=== PATIENT | female | born 1985 | race Caucasian/White ===

== ENCOUNTER 2018-09-22 10:14 | Emergency (ER) | payer OTHER ==
[~2018-09-22] VITALS: Ht 172.7 cm; Wt 82.0 kg
--- NOTE | 2018-09-22 11:13 | NUR ---
PT CURRENTLY IN .
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
[2018-09-22 11:48] LABS: BASOPHILS % (AUTO) 1 % (0-1); EOSINOPHILS # (AUTO) 0.09 x10^3/uL (0-0.4); EOSINOPHILS % (AUTO) 1 % (1-7); LYMPHOCYTES # (AUTO) 1.49 x10^3/uL (1-3.4); LYMPHOCYTES % (AUTO) 16 % (22-44); MD NO; MEAN CORPUSCULAR HEMOGLOBIN 28.7 pg (27.0-34.8); MEAN CORPUSCULAR HGB CONC 32.3 g/dL (32.4-35.8); MEAN CORPUSCULAR VOLUME 88.9 fL (80-100); MEAN PLATELET VOLUME 9.4 fL (7.4-10.4); MONOCYTES # (AUTO) 0.53 x10^3/uL (0.2-0.8); MONOCYTES % (AUTO) 6 % (2-9); NEUTROPHILS # (AUTO) 7.02 x10^3/uL (1.8-6.8); NEUTROPHILS % (AUTO) 76 % (42-75); PLATELET COUNT 231 x10^3/uL (130-400); RED BLOOD COUNT 4.34 x10^6/uL (3.82-5.3); RED CELL DISTRIBUTION WIDTH 13.4 % (9.6-15.2)
[2018-09-22 11:48] LABS: MICROSCOPIC NOT IND
[2018-09-22 11:54] LABS: CULTURE INDICATED? NO
[2018-09-22 11:59] LABS: ANION GAP 8 mmol/L (5-15); CALCIUM 8.6 mg/dL (8.5-10.1); CHLORIDE 110 mmol/L (98-107); CREATININE 0.57 mg/dL (0.55-1.02)
[2018-09-22 12:03] VITALS: BP 108/57
--- NOTE | 2018-09-22 12:03 | NUR ---
PT RESTING ON GURNEY. NADN. MONACO.
--- NOTE | 2018-09-22 12:26 | NUR ---
XUAN HOFFMAN SPOKE W/ L&D.
== END 2018-09-22 12:33 | disposition home or self-care (01) ==
LOC: ED 12:31
DX: O46.92 Antepartum hemorrhage, unspecified, second trimester (principal); Z3A.16 16 weeks gestation of pregnancy
CPT/HCPCS: 36415; 76815; 80048; 81003; 82040; 84702; 85025; 86901; 99284